=== PATIENT | male | born 1955 | race African-American/Black ===

== ENCOUNTER 2018-04-25 15:53 | Inpatient (IN) | payer OTHER ==
[2018-04-25 18:37] VITALS: BMI 23.1
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
[2018-04-25] MEDS ORDERED: IBUPROFEN 400 MG TABLET (FP) PO PRN (21:01)
[2018-04-25] MEDS ORDERED: METHADONE HCL 10 MG TABLET (FOR DETOX USE ONLY) PO ONE ×4 (21:01→23:45)
[2018-04-25] MEDS ORDERED: LOPERAMIDE HCL 2 MG CAPSULE PO PRN (21:01)
[2018-04-25] MEDS ORDERED: guaiFENesin/D-METHORPHAN HB 10 ML UNIT-DOSE CUPS PO PRN (21:01)
[2018-04-25] MEDS ORDERED: MENTHOL/PHENOL 1 EACH UD MM PRN (21:01)
[2018-04-25] MEDS ORDERED: NICOTINE POLACRILEX 2 MG GUM BC PRN (21:01)
[2018-04-25] MEDS ORDERED: MAGNESIUM CITRATE 300 ML BOTTLE PO PRN (21:01)
[2018-04-25] MEDS ORDERED: ACETAMINOPHEN 325 MG TABLET (FP) PO PRN (21:01)
[2018-04-25] MEDS ORDERED: MAG HYDROX/AL HYDROX/SIMETH 30 ML UNIT-DOSE CUP PO PRN (21:01)
[2018-04-25] MEDS ORDERED: MAGNESIUM HYDROX 2400MG/30ML ORAL SUSPENSION 30 ML CUP PO PRN (21:01)
[2018-04-25] MEDS ORDERED: P-EPHED 60MG/TRIPROLIDI 2.5MG TABLET PO PRN (21:01)
[2018-04-25] MEDS ORDERED: MELATONIN 5 MG TABLETS PO PRN (22:00)
[2018-04-25] MEDS: THIAMINE HCL 100 MG TABLET (FP) PO SCH (23:50)
[2018-04-25] MEDS: diazePAM 5 MG TABLET PO PRN (23:54)
[2018-04-26] MEDS ORDERED: METHADONE HCL 10 MG TABLET (FOR DETOX USE ONLY) PO ONE (10:00)
[2018-04-26] MEDS: PRENATAL VITAMINS W/ FOLIC ACID TABLET (FP) PO SCH (10:34)
[2018-04-26] MEDS: ASPIRIN 81 MG CHEWABLE TABLETS PO SCH (10:34)
[2018-04-26] MEDS: NICOTINE 21 MG/24 HOURS TOPICAL PATCH TD SCH (10:34)
[2018-04-26 11:29] LABS: ALK PHOS 81 U/L (45-117); ANION GAP 7 MMOL/L (8-16); BILIRUBIN,TOTAL 0.2 mg/dL (0.2-1); BLOOD UREA NITROGEN 14 mg/dL (7-18); CALCIUM 8.6 mg/dL (8.5-10.1); CHLORIDE 106 mmol/L (98-107); CO2 25 mmol/L (21-32); CREATININE 1.2 mg/dL (0.55-1.3); GLUCOSE,RANDOM 104 mg/dL (74-106); POTASSIUM 3.9 mmol/L (3.5-5.1); SGOT/AST 10 U/L (15-37); SGPT/ALT 14 U/L (13-61); SODIUM 138 mmol/L (136-145); TOT PROT 6.3 g/dl (6.4-8.2)
[2018-04-26 11:47] LABS: URINE APPEARANCE CLEAR; URINE BILIRUBIN NEGATIVE (<2.0 mg/dL); URINE COLOR LTYELLOW; URINE GLUCOSE (UA) NEGATIVE (NEGATIVE); URINE KETONE NEGATIVE (NEGATIVE); URINE LEUK ESTERASE NEGATIVE (NEGATIVE); URINE NITRITE NEGATIVE (NEGATIVE); URINE PROTEIN NEGATIVE (NEGATIVE)
[2018-04-26 11:53] LABS: HEMATOCRIT 35.9 % (35.4-49); HEMOGLOBIN 11.9 GM/dL (11.7-16.9); MCH 27.8 pg (25.7-33.7); MCHC 33.3 g/dl (32.0-35.9); MEAN CELL VOLUME 83.4 fl (80-96); MEAN PLT VOLUME 9.3 fl (7.5-11.1); PLATELET COUNT 209 K/MM3 (134-434); RDW 14.3 % (11.9-15.9); WHITE BLOOD COUNT 3.6 K/mm3 (4.0-10.0)
--- NOTE | 2018-04-26 14:44 | EKG ---
Test Reason : Blood Pressure : / mmHG Vent. Rate : 081 BPM Atrial Rate : 081 BPM P-R Int : 158 ms QRS Dur : 094 ms QT Int : 334 ms P-R-T Axes : 079 -06 048 degrees QTc Int : 387 ms NORMAL SINUS RHYTHM SEPTAL INFARCT , AGE UNDETERMINED ABNORMAL ECG NO PREVIOUS ECGS AVAILABLE Confirmed by Magdaleno Medeiros MD ([id number]) on 04/26/2018 2:43:58 PM Referred By: Confirmed By:Magdaleno Medeiros MD
--- NOTE | 2018-04-26 16:38 | PN ---
BHS COWS - Scale Resting Pulse: 1= [place] 81-100 Sweatin=Flushed/Facial Moisture Restless Observation: 1= Difficult to Sit Still Pupil Size: 0= Normal to Room Light Bone or Joint Aches: 1= Mild Discomfort Runny Nose/ Eye Tearin= Nasal Congestion GI Upset > 30mins: 2= Nausea/Diarrhea Tremor Observation of Outstretched Hands: 2= Slight Tremor Visible Yawning Observation: 1= 1-2x During Session Anxiety or Irritability: 1=Feels Anxious/Irritable Goose Flesh Skin: 0=Smooth Skin COWS Score: 12 BHS Progress Note (SOAP) Subjective: diarrhea shakes body pain Objective: 04/26/18 16:36 A &O x 3 Vital Signs Temperature 98.2 F 04/26/18 14:29 Pulse Rate 90 04/26/18 14:29 Respiratory Rate 17 04/26/18 14:29 Blood Pressure 110/54 L 04/26/18 14:29 O2 Sat by Pulse Oximetry (%) Laboratory Last Values WBC 3.6 K/mm3 (4.0-10.0) L 04/26/18 07:40 RBC 4.30 M/mm3 (4.00-5.60) 04/26/18 07:40 Hgb 11.9 GM/dL (11.7-16.9) 04/26/18 07:40 Hct 35.9 % (35.4-49) 04/26/18 07:40 MCV 83.4 fl (80-96) 04/26/18 07:40 MCH 27.8 pg (25.7-33.7) 04/26/18 07:40 MCHC 33.3 g/dl (32.0-35.9) 04/26/18 07:40 RDW 14.3 % (11.9-15.9) 04/26/18 07:40 Plt Count 209 K/MM3 (134-434) 04/26/18 07:40 MPV 9.3 fl (7.5-11.1) 04/26/18 07:40 Sodium 138 mmol/L (136-145) 04/26/18 07:40 Potassium 3.9 mmol/L (3.5-5.1) 04/26/18 07:40 Chloride 106 mmol/L (98-107) 04/26/18 07:40 Carbon Dioxide 25 mmol/L (21-32) 04/26/18 07:40 Anion Gap 7 MMOL/L (8-16) L 04/26/18 07:40 BUN 14 mg/dL (7-18) 04/26/18 07:40 Creatinine 1.2 mg/dL (0.55-1.3) 04/26/18 07:40 Creat Clearance w eGFR > 60 (>60) 04/26/18 07:40 Random Glucose 104 mg/dL (74-106) 04/26/18 07:40 Calcium 8.6 mg/dL (8.5-10.1) 04/26/18 07:40 Total Bilirubin 0.2 mg/dL (0.2-1) 04/26/18 07:40 AST 10 U/L (15-37) L 04/26/18 07:40 ALT 14 U/L (13-61) 04/26/18 07:40 Alkaline Phosphatase 81 U/L (45-117) 04/26/18 07:40 Total Protein 6.3 g/dl (6.4-8.2) L 04/26/18 07:40 Albumin 3.0 g/dl (3.4-5.0) L 04/26/18 07:40 Urine Color Ltyellow 04/26/18 07:40 Urine Appearance Clear 04/26/18 07:40 Urine pH 7.0 (5.0-8.0) 04/26/18 07:40 Ur Specific [place] 1.009 (1.010-1.035) L 04/26/18 07:40 Urine Protein Negative (NEGATIVE) 04/26/18 07:40 Urine Glucose (UA) Negative (NEGATIVE) 04/26/18 07:40 Urine Ketones Negative (NEGATIVE) 04/26/18 07:40 Urine Blood Negative (NEGATIVE) 04/26/18 07:40 Urine Nitrite Negative (NEGATIVE) 04/26/18 07:40 Urine Bilirubin Negative (<2.0 mg/dL) 04/26/18 07:40 Urine Urobilinogen 2.0 mg/dL (0.2-1.0) 04/26/18 07:40 Ur Leukocyte Esterase Negative (NEGATIVE) 04/26/18 07:40 RPR Titer Nonreactive (NONREACTIVE) 04/26/18 07:40 Assessment: 04/26/18 16:38 withdrawal sx Plan: continue detox symptomatic management of withdrawals per protocol
[2018-04-26] MEDS: diazePAM 5 MG TABLET PO PRN (22:27)
[2018-04-26] MEDS: THIAMINE HCL 100 MG TABLET (FP) PO SCH (22:27)
[2018-04-26] MEDS: ATORVASTATIN CA 20 MG TABLET (FP) PO SCH (22:27)
[2018-04-27] MEDS ORDERED: METHADONE HCL 5 MG TABLET (FOR DETOX USE ONLY) PO ONE (10:00)
[2018-04-27] MEDS: NICOTINE 21 MG/24 HOURS TOPICAL PATCH TD SCH (10:13)
[2018-04-27] MEDS: ASPIRIN 81 MG CHEWABLE TABLETS PO SCH (10:13)
[2018-04-27] MEDS: PRENATAL VITAMINS W/ FOLIC ACID TABLET (FP) PO SCH (10:13)
--- NOTE | 2018-04-27 16:28 | PN ---
S COWS - Scale Resting Pulse: 0= [place] 80 or Below Sweatin= Chills/Flushing Restless Observation: 3= Extraneous Movement Pupil Size: 0= Normal to Room Light Bone or Joint Aches: 2= Severe Diffuse Aches Runny Nose/ Eye Tearin= Runny Nose/Eyes GI Upset > 30mins: 1= Stomach Cramp Tremor Observation of Outstretched Hands: 2= Slight Tremor Visible Yawning Observation: 0= None Anxiety or Irritability: 2=Irritable/Anxious Goose Flesh Skin: 0=Smooth Skin COWS Score: 13 BHS Progress Note (SOAP) Subjective: Sweating, headache 7/10, nausea, diarrhea, interrupted sleep Objective: 04/27/18 16:26 Last Vital Signs Temp Pulse Resp BP Pulse Ox 97.9 F 70 18 119/71 04/27/18 13:18 04/27/18 13:18 04/27/18 13:18 04/27/18 13:18 Laboratory Tests 04/26/18 04/26/18 04/26/18 07:40 07:40 07:40 WBC 3.6 L RBC 4.30 Hgb 11.9 Hct 35.9 MCV 83.4 MCH 27.8 MCHC 33.3 RDW 14.3 Plt Count 209 MPV 9.3 Sodium 138 Potassium 3.9 Chloride 106 Carbon Dioxide 25 Anion Gap 7 L BUN 14 Creatinine 1.2 Creat Clearance w eGFR > 60 Random Glucose 104 Calcium 8.6 Total Bilirubin 0.2 AST 10 L ALT 14 Alkaline Phosphatase 81 Total Protein 6.3 L Albumin 3.0 L Urine Color Urine Appearance Urine pH Ur Specific [place] Urine Protein Urine Glucose (UA) Urine Ketones Urine Blood Urine Nitrite Urine Bilirubin Urine Urobilinogen Ur Leukocyte Esterase RPR Titer Nonreactive 04/26/18 07:40 WBC RBC Hgb Hct MCV MCH MCHC RDW Plt Count MPV Sodium Potassium Chloride Carbon Dioxide Anion Gap BUN Creatinine Creat Clearance w eGFR Random Glucose Calcium Total Bilirubin AST ALT Alkaline Phosphatase Total Protein Albumin Urine Color Ltyellow Urine Appearance Clear Urine pH 7.0 Ur Specific [place] 1.009 L Urine Protein Negative Urine Glucose (UA) Negative Urine Ketones Negative Urine Blood Negative Urine Nitrite Negative Urine Bilirubin Negative Urine Urobilinogen 2.0 Ur Leukocyte Esterase Negative RPR Titer Labs reviewed Assessment: 04/27/18 16:27 Withdrawal symptoms Plan: Continue detox Encouraged PO water hydration
[2018-04-27] MEDS: ATORVASTATIN CA 20 MG TABLET (FP) PO SCH (22:02)
[2018-04-27] MEDS: THIAMINE HCL 100 MG TABLET (FP) PO SCH (22:02)
[2018-04-27] MEDS: diazePAM 5 MG TABLET PO PRN (22:03)
[2018-04-28] MEDS ORDERED: METHADONE HCL 5 MG TABLET (FOR DETOX USE ONLY) PO ONE (10:00)
[2018-04-28] MEDS: ASPIRIN 81 MG CHEWABLE TABLETS PO SCH (10:38)
[2018-04-28] MEDS: PRENATAL VITAMINS W/ FOLIC ACID TABLET (FP) PO SCH (10:38)
[2018-04-28] MEDS: NICOTINE 21 MG/24 HOURS TOPICAL PATCH TD SCH (10:38)
--- NOTE | 2018-04-28 11:22 | PN ---
BHS COWS - Scale Resting Pulse: 1= [place] 81-100 Sweatin= Chills/Flushing Restless Observation: 0= Sits Still Pupil Size: 0= Normal to Room Light Bone or Joint Aches: 1= Mild Discomfort Runny Nose/ Eye Tearin= Nasal Congestion GI Upset > 30mins: 1= Stomach Cramp Tremor Observation of Outstretched Hands: 1= Tremor [place], Not Seen Yawning Observation: 1= 1-2x During Session Anxiety or Irritability: 2=Irritable/Anxious Goose Flesh Skin: 0=Smooth Skin COWS Score: 9 BHS Progress Note (SOAP) Subjective: feeling better mild body aches less tremor no trouble sleep at night patient preferred begin chemical rehab tomorrow that able to cope with the current withdrawal sx patient is alert no acute distress wants to return to [facility] tomorrow Objective: 04/28/18 11:21 Vital Signs Temperature 98.2 F 04/28/18 09:25 Pulse Rate 96 H 04/28/18 09:25 Respiratory Rate 20 04/28/18 09:25 Blood Pressure 104/74 04/28/18 09:25 O2 Sat by Pulse Oximetry (%) Laboratory Last Values WBC 3.6 K/mm3 (4.0-10.0) L 04/26/18 07:40 RBC 4.30 M/mm3 (4.00-5.60) 04/26/18 07:40 Hgb 11.9 GM/dL (11.7-16.9) 04/26/18 07:40 Hct 35.9 % (35.4-49) 04/26/18 07:40 MCV 83.4 fl (80-96) 04/26/18 07:40 MCH 27.8 pg (25.7-33.7) 04/26/18 07:40 MCHC 33.3 g/dl (32.0-35.9) 04/26/18 07:40 RDW 14.3 % (11.9-15.9) 04/26/18 07:40 Plt Count 209 K/MM3 (134-434) 04/26/18 07:40 MPV 9.3 fl (7.5-11.1) 04/26/18 07:40 Sodium 138 mmol/L (136-145) 04/26/18 07:40 Potassium 3.9 mmol/L (3.5-5.1) 04/26/18 07:40 Chloride 106 mmol/L (98-107) 04/26/18 07:40 Carbon Dioxide 25 mmol/L (21-32) 04/26/18 07:40 Anion Gap 7 MMOL/L (8-16) L 04/26/18 07:40 BUN 14 mg/dL (7-18) 04/26/18 07:40 Creatinine 1.2 mg/dL (0.55-1.3) 04/26/18 07:40 Creat Clearance w eGFR > 60 (>60) 04/26/18 07:40 Random Glucose 104 mg/dL (74-106) 04/26/18 07:40 Calcium 8.6 mg/dL (8.5-10.1) 04/26/18 07:40 Total Bilirubin 0.2 mg/dL (0.2-1) 04/26/18 07:40 AST 10 U/L (15-37) L 04/26/18 07:40 ALT 14 U/L (13-61) 04/26/18 07:40 Alkaline Phosphatase 81 U/L (45-117) 04/26/18 07:40 Total Protein 6.3 g/dl (6.4-8.2) L 04/26/18 07:40 Albumin 3.0 g/dl (3.4-5.0) L 04/26/18 07:40 Urine Color Ltyellow 04/26/18 07:40 Urine Appearance Clear 04/26/18 07:40 Urine pH 7.0 (5.0-8.0) 04/26/18 07:40 Ur Specific [place] 1.009 (1.010-1.035) L 04/26/18 07:40 Urine Protein Negative (NEGATIVE) 04/26/18 07:40 Urine Glucose (UA) Negative (NEGATIVE) 04/26/18 07:40 Urine Ketones Negative (NEGATIVE) 04/26/18 07:40 Urine Blood Negative (NEGATIVE) 04/26/18 07:40 Urine Nitrite Negative (NEGATIVE) 04/26/18 07:40 Urine Bilirubin Negative (<2.0 mg/dL) 04/26/18 07:40 Urine Urobilinogen 2.0 mg/dL (0.2-1.0) 04/26/18 07:40 Ur Leukocyte Esterase Negative (NEGATIVE) 04/26/18 07:40 RPR Titer Nonreactive (NONREACTIVE) 04/26/18 07:40 lab noted Assessment: 04/28/18 11:22 mild withdrawal sx Plan: continue detox
[2018-04-28 22:09] VITALS: TEMP 97.1
[2018-04-28] MEDS: THIAMINE HCL 100 MG TABLET (FP) PO SCH (22:23)
[2018-04-28] MEDS: ATORVASTATIN CA 20 MG TABLET (FP) PO SCH (22:24)
[2018-04-29] MEDS ORDERED: METHADONE HCL 5 MG TABLET (FOR DETOX USE ONLY) PO ONE (06:00)
[2018-04-29 06:20] VITALS: BP 116/65; PULSE 69
[2018-04-29] MEDS ORDERED: METHADONE HCL 10 MG TABLET (FOR DETOX USE ONLY) PO ONE (10:00)
--- NOTE | 2018-04-29 10:32 | DS ---
[facility] Detox Discharge Summary Admission Date: 04/25/18 Discharge Date: 04/29/18 - History Present History: Opioid Dependence Additional Comments: 63 years old male admitted on 04/25/18 for opiate withdrawal stabilization transferred from due to augmentative with roommate patient was doing well on 3N feeling better and preferred return to [facility] for chemical rehab program alert no acute distress denies suicidal ideation aftercare [facility] services Pertinent Past History: patient stated that he is court mandated for opiate detox and require court appearance reported feeling better and able to manage mild opiate withdrawal and has support network in [facility] encourage strip picker narcan kit - Physical Exam Results Vital Signs: Vital Signs Temperature 97.1 F L 04/29/18 06:19 Pulse Rate 69 04/29/18 06:19 Respiratory Rate 18 04/29/18 06:19 Blood Pressure 116/65 04/29/18 06:19 O2 Sat by Pulse Oximetry (%) Pertinent Admission Physical Exam Findings: opiate withdrawal sx Laboratory Last Values WBC 3.6 K/mm3 (4.0-10.0) L 04/26/18 07:40 RBC 4.30 M/mm3 (4.00-5.60) 04/26/18 07:40 Hgb 11.9 GM/dL (11.7-16.9) 04/26/18 07:40 Hct 35.9 % (35.4-49) 04/26/18 07:40 MCV 83.4 fl (80-96) 04/26/18 07:40 MCH 27.8 pg (25.7-33.7) 04/26/18 07:40 MCHC 33.3 g/dl (32.0-35.9) 04/26/18 07:40 RDW 14.3 % (11.9-15.9) 04/26/18 07:40 Plt Count 209 K/MM3 (134-434) 04/26/18 07:40 MPV 9.3 fl (7.5-11.1) 04/26/18 07:40 Sodium 138 mmol/L (136-145) 04/26/18 07:40 Potassium 3.9 mmol/L (3.5-5.1) 04/26/18 07:40 Chloride 106 mmol/L (98-107) 04/26/18 07:40 Carbon Dioxide 25 mmol/L (21-32) 04/26/18 07:40 Anion Gap 7 MMOL/L (8-16) L 04/26/18 07:40 BUN 14 mg/dL (7-18) 04/26/18 07:40 Creatinine 1.2 mg/dL (0.55-1.3) 04/26/18 07:40 Creat Clearance w eGFR > 60 (>60) 04/26/18 07:40 Random Glucose 104 mg/dL (74-106) 04/26/18 07:40 Calcium 8.6 mg/dL (8.5-10.1) 04/26/18 07:40 Total Bilirubin 0.2 mg/dL (0.2-1) 04/26/18 07:40 AST 10 U/L (15-37) L 04/26/18 07:40 ALT 14 U/L (13-61) 04/26/18 07:40 Alkaline Phosphatase 81 U/L (45-117) 04/26/18 07:40 Total Protein 6.3 g/dl (6.4-8.2) L 04/26/18 07:40 Albumin 3.0 g/dl (3.4-5.0) L 04/26/18 07:40 Urine Color Ltyellow 04/26/18 07:40 Urine Appearance Clear 04/26/18 07:40 Urine pH 7.0 (5.0-8.0) 04/26/18 07:40 Ur Specific [place] 1.009 (1.010-1.035) L 04/26/18 07:40 Urine Protein Negative (NEGATIVE) 04/26/18 07:40 Urine Glucose (UA) Negative (NEGATIVE) 04/26/18 07:40 Urine Ketones Negative (NEGATIVE) 04/26/18 07:40 Urine Blood Negative (NEGATIVE) 04/26/18 07:40 Urine Nitrite Negative (NEGATIVE) 04/26/18 07:40 Urine Bilirubin Negative (<2.0 mg/dL) 04/26/18 07:40 Urine Urobilinogen 2.0 mg/dL (0.2-1.0) 04/26/18 07:40 Ur Leukocyte Esterase Negative (NEGATIVE) 04/26/18 07:40 RPR Titer Nonreactive (NONREACTIVE) 04/26/18 07:40 lab noted - Treatment Hospital Course: Detox Protocol Followed, Detoxed Safely, Responded well, Discharged Condition Good, Rehab Referral Accepted Patient has Accepted a Rehab Referral to: [facility] - Medication Discharge Medications: Ambulatory Orders Aspirin [ASA -] 81 mg PO DAILY 04/25/18 Atorvastatin Calcium [Lipitor] 20 mg PO HS #14 tablet 04/28/18 Famotidine [Pepcid] 20 mg PO DAILY 04/28/18 Naloxone HCl [Narcan] 4 mg NS ASDIR PRN 04/29/18 - Diagnosis (1) Opioid dependence with withdrawal Status: Acute (2) HTN (hypertension) Status: Chronic Qualifiers: Hypertension type: essential hypertension Qualified Code(s): I10 - Essential (primary) hypertension (3) Nicotine dependence Status: Acute Qualifiers: Nicotine product type: cigarettes Substance use status: in withdrawal Qualified Code(s): F17.213 - Nicotine dependence, cigarettes, with withdrawal - AMA Did Patient Leave Against Medical Advice: No
[2018-04-30] MEDS ORDERED: METHADONE HCL 5 MG TABLET (FOR DETOX USE ONLY) PO ONE (06:00)
== END 2018-04-29 09:48 | disposition home or self-care (01) | DRG 897 ==
LOC: YASAS 15:53 → Y6N 20:10 → Y3N 04-28 08:32
PROVIDERS: ADMIT Surgery; ATTEND Surgery
PROC: HZ2ZZZZ Detoxification Services for Substance Abuse Treatment (ICD-10-PCS; principal; 2018-04-25)
DX: F11.23 Opioid dependence with withdrawal (principal); F17.213 Nicotine dependence, cigarettes, with withdrawal; F19.24 Other psychoactive substance dependence with psychoactive substance-induced mood disorder; F32.9 Major depressive disorder, single episode, unspecified; I10 Essential (primary) hypertension; E78.5 Hyperlipidemia, unspecified; I49.9 Cardiac arrhythmia, unspecified; R01.1 Cardiac murmur, unspecified; R63.8 Other symptoms and signs concerning food and fluid intake
CPT/HCPCS: 36415; 80053; 81003; 85027; 86593; 93005; 93010

== ENCOUNTER 2018-05-01 08:17 | Inpatient (IN) | payer OTHER ==
[2018-05-01 08:56] VITALS: BMI 24.3
--- NOTE | 2018-05-01 10:50 | HP ---
[facility] Rehab Assess/Revision - Admission History Admitted to Rehab from: [facility] Date of Admission to Rehab: 05/01/18 - Vital signs Vital Signs: Vital Signs Period Temp Pulse Resp BP Sys/Diaz Pulse Ox Last 24 Hr 96.3 F 90 18 136/90 - Findings Detox History & Physical reviewed: Yes Concur with findings: Yes Comments/Additional Findings: for rehab as protocol,. 63 years old male with heroin dependence,nicotine dependence,hypertension,. hypercholesterolemia, admitted complete detox at [facility] from 04/25/18 to 04/29/18,stable to be admitted for rehab Inpatient Rehab Admission - Rehab Decision to Admit Inpatient rehab admission?: Yes - Initial Determination Are CD services needed?: Yes Free of communicable disease: Yes Not in need of hospitalization: Yes - Rehab Admission Criteria Previous failed treatment: Yes Poor recovery environment: Yes Comorbidities: Yes Lacks judgement: No Patient is meeting Inpatient Rehab admission criteria:: Yes
[2018-05-01] MEDS ORDERED: NICOTINE POLACRILEX 2 MG GUM BUC PRN (10:55)
[2018-05-01] MEDS ORDERED: MAGNESIUM HYDROX 2400MG/30ML ORAL SUSPENSION 30 ML CUP PO PRN (10:55)
[2018-05-01] MEDS ORDERED: IBUPROFEN 400 MG TABLET (FP) PO PRN (10:55)
[2018-05-01] MEDS ORDERED: P-EPHED 60MG/TRIPROLIDI 2.5MG TABLET PO PRN (10:55)
[2018-05-01] MEDS ORDERED: guaiFENesin/D-METHORPHAN HB 10 ML UNIT-DOSE CUPS PO PRN (10:55)
[2018-05-01] MEDS ORDERED: MAGNESIUM CITRATE 300 ML BOTTLE PO PRN (10:55)
[2018-05-01] MEDS ORDERED: LOPERAMIDE HCL 2 MG CAPSULE PO PRN (10:55)
[2018-05-01] MEDS ORDERED: MAG HYDROX/AL HYDROX/SIMETH 30 ML UNIT-DOSE CUP PO PRN (10:55)
[2018-05-01] MEDS ORDERED: MENTHOL/PHENOL 1 EACH UD MM PRN (10:55)
[2018-05-01] MEDS ORDERED: ACETAMINOPHEN 325 MG TABLET (FP) PO PRN (10:55)
[2018-05-01] MEDS ORDERED: ASPIRIN 81 MG CHEWABLE TABLETS PO ONE (10:58)
[2018-05-01] MEDS: THIAMINE HCL 100 MG TABLET (FP) PO SCH (22:01)
[2018-05-01] MEDS: RANITIDINE HCL 150 MG TABLET (FP) PO SCH (22:01)
[2018-05-01] MEDS: ATORVASTATIN CA 20 MG TABLET (FP) PO SCH (22:01)
[2018-05-02] MEDS: PRENATAL VITAMINS W/ FOLIC ACID TABLET (FP) PO SCH (10:21)
[2018-05-02] MEDS: ASPIRIN 81 MG CHEWABLE TABLETS PO SCH (10:21)
[2018-05-02] MEDS: RANITIDINE HCL 150 MG TABLET (FP) PO SCH ×2 (10:21→22:12)
[2018-05-02] MEDS: THIAMINE HCL 100 MG TABLET (FP) PO SCH (22:12)
[2018-05-02] MEDS: ATORVASTATIN CA 20 MG TABLET (FP) PO SCH (22:12)
[2018-05-03] MEDS: ASPIRIN 81 MG CHEWABLE TABLETS PO SCH (10:05)
[2018-05-03] MEDS: RANITIDINE HCL 150 MG TABLET (FP) PO SCH ×2 (10:05→21:14)
[2018-05-03] MEDS: PRENATAL VITAMINS W/ FOLIC ACID TABLET (FP) PO SCH (10:05)
[2018-05-03] MEDS: ATORVASTATIN CA 20 MG TABLET (FP) PO SCH (21:14)
[2018-05-03] MEDS: THIAMINE HCL 100 MG TABLET (FP) PO SCH (21:14)
[2018-05-03] MEDS: MELATONIN 5 MG TABLETS PO PRN (22:17)
[2018-05-04] MEDS: RANITIDINE HCL 150 MG TABLET (FP) PO SCH ×2 (10:19→21:53)
[2018-05-04] MEDS: PRENATAL VITAMINS W/ FOLIC ACID TABLET (FP) PO SCH (10:19)
[2018-05-04] MEDS: ASPIRIN 81 MG CHEWABLE TABLETS PO SCH (10:19)
[2018-05-04] MEDS: THIAMINE HCL 100 MG TABLET (FP) PO SCH (21:53)
[2018-05-04] MEDS: ATORVASTATIN CA 20 MG TABLET (FP) PO SCH (21:53)
[2018-05-04] MEDS: MELATONIN 5 MG TABLETS PO PRN (21:53)
[2018-05-05] MEDS: ASPIRIN 81 MG CHEWABLE TABLETS PO SCH (09:43)
[2018-05-05] MEDS: RANITIDINE HCL 150 MG TABLET (FP) PO SCH ×2 (09:43→21:08)
[2018-05-05] MEDS: PRENATAL VITAMINS W/ FOLIC ACID TABLET (FP) PO SCH (09:43)
[2018-05-05] MEDS: THIAMINE HCL 100 MG TABLET (FP) PO SCH (21:08)
[2018-05-05] MEDS: MELATONIN 5 MG TABLETS PO PRN (21:08)
[2018-05-05] MEDS: ATORVASTATIN CA 20 MG TABLET (FP) PO SCH (21:08)
[2018-05-06] MEDS: ASPIRIN 81 MG CHEWABLE TABLETS PO SCH (10:19)
[2018-05-06] MEDS: RANITIDINE HCL 150 MG TABLET (FP) PO SCH ×2 (10:19→22:02)
[2018-05-06] MEDS: PRENATAL VITAMINS W/ FOLIC ACID TABLET (FP) PO SCH (10:19)
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
[2018-05-06] MEDS: THIAMINE HCL 100 MG TABLET (FP) PO SCH (22:02)
[2018-05-06] MEDS: ATORVASTATIN CA 20 MG TABLET (FP) PO SCH (22:02)
[2018-05-06] MEDS: hydrOXYzine PAMOATE 25 MG CAPSULE (FP) PO PRN (22:04)
[2018-05-06] MEDS: MELATONIN 5 MG TABLETS PO PRN (22:05)
[2018-05-07] MEDS: PRENATAL VITAMINS W/ FOLIC ACID TABLET (FP) PO SCH (10:09)
[2018-05-07] MEDS: hydrOXYzine PAMOATE 25 MG CAPSULE (FP) PO PRN (10:09)
[2018-05-07] MEDS: RANITIDINE HCL 150 MG TABLET (FP) PO SCH ×2 (10:09→21:17)
[2018-05-07] MEDS: ASPIRIN 81 MG CHEWABLE TABLETS PO SCH (10:09)
[2018-05-07] MEDS: ATORVASTATIN CA 20 MG TABLET (FP) PO SCH (21:17)
[2018-05-07] MEDS: THIAMINE HCL 100 MG TABLET (FP) PO SCH (21:17)
[2018-05-07] MEDS: MELATONIN 5 MG TABLETS PO PRN (21:17)
[2018-05-08] MEDS ORDERED: PT OWN MED DRAWER 7, Y5N ONE (09:54)
[2018-05-08] MEDS: PRENATAL VITAMINS W/ FOLIC ACID TABLET (FP) PO SCH (09:58)
[2018-05-08] MEDS: ASPIRIN 81 MG CHEWABLE TABLETS PO SCH (09:58)
[2018-05-08] MEDS: RANITIDINE HCL 150 MG TABLET (FP) PO SCH ×2 (09:58→21:50)
[2018-05-08] MEDS: ATORVASTATIN CA 20 MG TABLET (FP) PO SCH (21:50)
[2018-05-08] MEDS: THIAMINE HCL 100 MG TABLET (FP) PO SCH (21:50)
[2018-05-08] MEDS: MELATONIN 5 MG TABLETS PO PRN (21:51)
[2018-05-09] MEDS: RANITIDINE HCL 150 MG TABLET (FP) PO SCH ×2 (09:44→22:00)
[2018-05-09] MEDS: PRENATAL VITAMINS W/ FOLIC ACID TABLET (FP) PO SCH (09:44)
[2018-05-09] MEDS: ASPIRIN 81 MG CHEWABLE TABLETS PO SCH (09:45)
[2018-05-09] MEDS: ATORVASTATIN CA 20 MG TABLET (FP) PO SCH (22:00)
[2018-05-09] MEDS: MELATONIN 5 MG TABLETS PO PRN (22:00)
[2018-05-09] MEDS: THIAMINE HCL 100 MG TABLET (FP) PO SCH (22:00)
[2018-05-10] MEDS: RANITIDINE HCL 150 MG TABLET (FP) PO SCH ×2 (09:51→21:20)
[2018-05-10] MEDS: ASPIRIN 81 MG CHEWABLE TABLETS PO SCH (09:51)
[2018-05-10] MEDS: PRENATAL VITAMINS W/ FOLIC ACID TABLET (FP) PO SCH (09:51)
[2018-05-10] MEDS: THIAMINE HCL 100 MG TABLET (FP) PO SCH (21:19)
[2018-05-10] MEDS: MELATONIN 5 MG TABLETS PO PRN (21:20)
[2018-05-10] MEDS: ATORVASTATIN CA 20 MG TABLET (FP) PO SCH (21:20)
[2018-05-11] MEDS: PRENATAL VITAMINS W/ FOLIC ACID TABLET (FP) PO SCH (09:34)
[2018-05-11] MEDS: RANITIDINE HCL 150 MG TABLET (FP) PO SCH ×2 (09:34→21:11)
[2018-05-11] MEDS: ASPIRIN 81 MG CHEWABLE TABLETS PO SCH (09:34)
[2018-05-11] MEDS: ATORVASTATIN CA 20 MG TABLET (FP) PO SCH (21:10)
[2018-05-11] MEDS: THIAMINE HCL 100 MG TABLET (FP) PO SCH (21:10)
[2018-05-11] MEDS: MELATONIN 5 MG TABLETS PO PRN (21:11)
[2018-05-12 06:55] VITALS: BP 122/70; PULSE 64; TEMP 97.6
[2018-05-12] MEDS: RANITIDINE HCL 150 MG TABLET (FP) PO SCH (09:18)
[2018-05-12] MEDS: PRENATAL VITAMINS W/ FOLIC ACID TABLET (FP) PO SCH (09:18)
[2018-05-12] MEDS: ASPIRIN 81 MG CHEWABLE TABLETS PO SCH (09:18)
[2018-05-12] MEDS ORDERED: PT OWN MED DRAWER 7, Y5N ONE (09:33)
--- NOTE | 2018-05-12 12:11 | PN ---
[facility] Progress Note Note: REHAB DISCHARGE NOTE PATIENT SCHEDULED FOR DISCHARGE FROM REHAB TODAY. PATIENT IS MEDICALLY STABLE AND DENIES SI/HI. PATIENT STATES HE ACCOMPLISHED ALL REHAB GOALS AND DENIES SI/ HI. TO FOLLOW UP INDEPENDENTLY OUTPATIENT TREATMENT IN [place], [place]. PATIENT ENCOURAGED TO ATTEND GROUP MEETINGS TO PREVENT RELAPSE AND TO FOLLOW UP WITH PCP WITHIN ONE WEEK OF DISCHARGE. PATIENT SENT ALL (MEDICAL) MEDICATIONS TO PREFERRED PHARMACY. Vital Signs Temperature 97.6 F 05/12/18 06:00 Pulse Rate 64 05/12/18 06:00 Respiratory Rate 18 05/12/18 06:00 Blood Pressure 122/70 05/12/18 06:00 O2 Sat by Pulse Oximetry (%)
== END 2018-05-12 10:15 | disposition home or self-care (01) | DRG 895 ==
LOC: YASAS 08:17 → Y3W 10:59
PROVIDERS: ADMIT Neuromusculoskeletal Medicine & OMM; ATTEND Neuromusculoskeletal Medicine & OMM
PROC: HZ42ZZZ Group Counseling for Substance Abuse Treatment, Cognitive-Behavioral (ICD-10-PCS; principal; 2018-05-01)
DX: F11.20 Opioid dependence, uncomplicated (principal); F17.210 Nicotine dependence, cigarettes, uncomplicated; F19.24 Other psychoactive substance dependence with psychoactive substance-induced mood disorder; F32.9 Major depressive disorder, single episode, unspecified; I10 Essential (primary) hypertension; E78.5 Hyperlipidemia, unspecified; R01.1 Cardiac murmur, unspecified; R63.8 Other symptoms and signs concerning food and fluid intake

== ENCOUNTER 2018-05-06 14:24 | Emergency (ER) | payer OTHER ==
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
[2018-05-06 14:41] VITALS: BP 102/66; PULSE 85; TEMP 98.1; BMI 24.0
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
[2018-05-06] MEDS ORDERED: KETOROLAC TROMETHAMINE 60 MG/2 ML VIAL ONE (15:39)
[2018-05-06] MEDS ORDERED: KETOROLAC TROMETHAMINE 60 MG/2 ML VIAL IM ONE (15:40)
[2018-05-06] MEDS ORDERED: LIDOCAINE 5% TOPICAL PATCH TP ONE (15:41)
[2018-05-06] MEDS ORDERED: LIDOCAINE 5% TOPICAL PATCH ONE (15:44)
[2018-05-06] MEDS ORDERED: LIDOCAINE PATCH REMOVAL MC SCH (22:00)
== END 2018-05-06 16:16 | disposition home or self-care (01) ==
LOC: JERFT 14:24
PROC: 3E0233Z Introduction of Anti-inflammatory into Muscle, Percutaneous Approach (ICD-10-PCS; principal; 2018-05-06)
DX: S39.012A Strain of muscle, fascia and tendon of lower back, initial encounter (principal); Y00.XXXA Assault by blunt object, initial encounter; Y93.89 Activity, other specified; Y92.238 Other place in hospital as the place of occurrence of the external cause; Y99.8 Other external cause status; I10 Essential (primary) hypertension; E78.5 Hyperlipidemia, unspecified; F11.20 Opioid dependence, uncomplicated
CPT/HCPCS: 96372; 99281-25

== ENCOUNTER 2021-10-04 12:50 | Inpatient (IN) | payer OTHER ==
[2021-10-04 14:24] VITALS: BMI 23.6
[2021-10-04] MEDS ORDERED: MAGNESIUM HYDROX 2400MG/30ML ORAL SUSPENSION 30 ML CUP PO PRN (19:57)
[2021-10-04] MEDS ORDERED: MAG HYDROX/AL HYDROX/SIMETH 30 ML UNIT-DOSE CUP PO PRN (19:57)
[2021-10-04] MEDS ORDERED: LOPERAMIDE HCL 2 MG CAPSULE PO PRN (19:57)
[2021-10-04] MEDS ORDERED: ONDANSETRON *ODT* 4 MG TABLET SL PRN (19:57)
[2021-10-04] MEDS ORDERED: ACETAMINOPHEN 325 MG TABLET (FP) PO PRN ×2 (19:57)
[2021-10-04] MEDS ORDERED: MAGNESIUM CITRATE 300 ML BOTTLE PO PRN (19:57)
[2021-10-04] MEDS ORDERED: cloNIDine HCL 0.1 MG TABLET PO PRN (19:57)
[2021-10-04] MEDS ORDERED: BENZOCAINE/MENTHOL (CHLORASEPTIC ) LOZENGE MM PRN (19:57)
[2021-10-04] MEDS ORDERED: BISMUTH SUBSALICYLATE 524 MG/30 ML PO PRN (19:57)
[2021-10-04] MEDS ORDERED: methaDONE HCL 10 MG TABLET (FOR DETOX USE ONLY) PO ONE (19:57)
[2021-10-04] MEDS ORDERED: DICYCLOMINE HCL 10 MG CAPSULE PO PRN (19:57)
[2021-10-04] MEDS ORDERED: METHOCARBAMOL 500 MG TABLET PO PRN (19:57)
[2021-10-04] MEDS ORDERED: IBUPROFEN 600 MG TABLET (FP) PO PRN (19:57)
[2021-10-04] MEDS ORDERED: IBUPROFEN 400 MG TABLET (FP) PO PRN (19:57)
[2021-10-04] MEDS: MELATONIN 5 MG TABLETS PO SCH (23:53)
[2021-10-04] MEDS: THIAMINE HCL 100 MG TABLET (FP) PO SCH (23:53)
[2021-10-04] MEDS: hydrOXYzine PAMOATE 25 MG CAPSULE (FP) PO SCH (23:53)
[2021-10-05] MEDS: hydrOXYzine PAMOATE 25 MG CAPSULE (FP) PO SCH ×5 (07:01→23:30)
[2021-10-05] MEDS ORDERED: methaDONE HCL 10 MG TABLET (FOR DETOX USE ONLY) ONE (08:46)
[2021-10-05] MEDS ORDERED: NICOTINE 21 MG/24 HOURS TOPICAL PATCH TD SCH (10:00)
[2021-10-05] MEDS ORDERED: PRENATAL VITAMINS W/ FOLIC ACID TABLET (FP) PO SCH (10:00)
[2021-10-05 13:45] LABS: HEMATOCRIT 34.1 % (35.4-49); HEMOGLOBIN 10.8 GM/dL (11.7-16.9); MCH 24.7 pg (25.7-33.7); MCHC 31.7 g/dl (32.0-35.9); MEAN CELL VOLUME 77.7 fl (80-96); MEAN PLT VOLUME 8.2 fl (7.5-11.1); PLATELET COUNT 311 10^3/uL (134-434); RBC 4.38 M/mm3 (4.00-5.60); RDW 17.7 % (11.9-15.9); WHITE BLOOD COUNT 3.9 K/mm3 (4.0-10.0)
[2021-10-05 13:56] LABS: CALCIUM 8.9 mg/dL (8.5-10.1)
[2021-10-05 13:57] LABS: ALBUMIN 2.7 g/dl (3.4-5.0); BLOOD UREA NITROGEN 9.4 mg/dL (7-18)
[2021-10-05 14:00] LABS: CREATININE 1.1 mg/dL (0.55-1.3)
[2021-10-05 14:02] LABS: BILIRUBIN,TOTAL 0.4 mg/dL (0.2-1)
[2021-10-05] MEDS ORDERED: diazePAM 5 MG TABLET PO PRN (15:22)
[2021-10-05 16:32] LABS: HIV INTERPRETATION NEGATIVE (NEGATIVE)
[2021-10-05] MEDS: MELATONIN 5 MG TABLETS PO SCH (23:30)
[2021-10-05] MEDS: THIAMINE HCL 100 MG TABLET (FP) PO SCH (23:30)
[2021-10-06] MEDS: hydrOXYzine PAMOATE 25 MG CAPSULE (FP) PO SCH (06:59)
[2021-10-06 09:46] VITALS: BP 155/82; PULSE 87; TEMP 97.5
[2021-10-06] MEDS ORDERED: methaDONE HCL 10 MG TABLET (FOR DETOX USE ONLY) PO ONE (10:00)
[2021-10-08] MEDS ORDERED: methaDONE HCL 10 MG TABLET (FOR DETOX USE ONLY) PO ONE (10:00)
== END 2021-10-06 09:50 | disposition left against medical advice (07) | DRG 894 ==
LOC: YASAS 12:50 → Y3N 23:14
PROVIDERS: ADMIT Allergy & Immunology; ATTEND Surgery
PROC: HZ2ZZZZ Detoxification Services for Substance Abuse Treatment (ICD-10-PCS; principal; 2021-10-04)
DX: F11.23 Opioid dependence with withdrawal (principal); F19.282 Other psychoactive substance dependence with psychoactive substance-induced sleep disorder; L03.115 Cellulitis of right lower limb; F17.210 Nicotine dependence, cigarettes, uncomplicated; F19.24 Other psychoactive substance dependence with psychoactive substance-induced mood disorder; F41.9 Anxiety disorder, unspecified; E78.5 Hyperlipidemia, unspecified; I10 Essential (primary) hypertension; M54.50 Low back pain, unspecified; G89.29 Other chronic pain
CPT/HCPCS: 36415; 80053; 85025; 85027; 86780; 87040; 87389; 93970-TC; C9803-CS; J0735; J0875; U0003; U0005

== ENCOUNTER 2023-02-23 15:33 | Inpatient (IN) | payer OTHER ==
[2023-02-23 17:07] VITALS: BMI 22.9
[2023-02-23] MEDS ORDERED: methaDONE HCL 10 MG TABLET (FOR DETOX USE ONLY) PO ONE ×2 (17:37→19:00)
[2023-02-23] MEDS ORDERED: BENZOCAINE/MENTHOL (CHLORASEPTIC ) LOZENGE MM PRN (17:37)
[2023-02-23] MEDS ORDERED: POLYETHYLENE GLYCOL (HEALTHYLAX) 3350 17 GM PACKET PO PRN (17:37)
[2023-02-23] MEDS ORDERED: DICYCLOMINE HCL 10 MG CAPSULE PO PRN (17:37)
[2023-02-23] MEDS ORDERED: MAG HYDROX/AL HYDROX/SIMETH 30 ML UNIT-DOSE CUP PO PRN (17:37)
[2023-02-23] MEDS ORDERED: P-EPHED 60MG/TRIPROLIDI 2.5MG TABLET PO PRN (17:37)
[2023-02-23] MEDS ORDERED: ACETAMINOPHEN 325 MG TABLET (FP) PO PRN (17:37)
[2023-02-23] MEDS ORDERED: guaiFENesin 600 MG TABLET.ER (FP) PO PRN (17:37)
[2023-02-23] MEDS ORDERED: NICOTINE POLACRILEX 2 MG GUM BUC PRN (17:37)
[2023-02-23] MEDS ORDERED: NALOXONE HCL 0.4 MG/ML VIAL IM PRN (17:37)
[2023-02-23] MEDS ORDERED: MAGNESIUM HYDROX 2400MG/30ML ORAL SUSPENSION 30 ML CUP PO PRN (17:37)
[2023-02-23] MEDS ORDERED: NALOXONE HCL (KLOXXADO) 8 MG SPRAY NS PRN (17:37)
[2023-02-23] MEDS ORDERED: BENZONATATE 200 MG CAPSULE PO PRN (17:37)
[2023-02-23] MEDS ORDERED: IBUPROFEN 600 MG TABLET (FP) PO PRN (17:37)
[2023-02-23] MEDS ORDERED: BACLOFEN 10 MG TABLET (FP) PO PRN (17:37)
[2023-02-23] MEDS ORDERED: cloNIDine HCL 0.1 MG TABLET PO PRN (17:37)
[2023-02-23] MEDS ORDERED: IBUPROFEN 400 MG TABLET (FP) PO PRN (17:37)
[2023-02-23] MEDS ORDERED: BISMUTH SUBSALICYLATE 524 MG/30 ML PO PRN (17:37)
[2023-02-23] MEDS ORDERED: TRIMETHOBENZAMIDE HCL 200MG/2ML INJ IM ONE ×2 (18:05→18:10)
[2023-02-23] MEDS: ASPIRIN 81 MG CHEWABLE TABLETS PO SCH (20:26)
[2023-02-23] MEDS ORDERED: ONDANSETRON *ODT* 4 MG TABLET SL ONE (22:40)
[2023-02-23] MEDS: ATORVASTATIN CA 20 MG TABLET (FP) PO SCH (22:45)
[2023-02-23] MEDS: MELATONIN 5 MG TABLETS PO SCH (22:45)
[2023-02-23] MEDS: THIAMINE HCL 100 MG TABLET (FP) PO SCH (22:45)
[2023-02-24] MEDS: PRENATAL VITAMINS W/ FOLIC ACID TABLET (FP) PO SCH (09:58)
[2023-02-24] MEDS: ASPIRIN 81 MG CHEWABLE TABLETS PO SCH (09:58)
[2023-02-24] MEDS: FAMOTIDINE 20 MG TABLET PO SCH (09:59)
[2023-02-24] MEDS: THIAMINE HCL 100 MG TABLET (FP) PO SCH (22:35)
[2023-02-24] MEDS: ATORVASTATIN CA 20 MG TABLET (FP) PO SCH (22:35)
[2023-02-24] MEDS: MELATONIN 5 MG TABLETS PO SCH (22:35)
[2023-02-25] MEDS ORDERED: ONDANSETRON *ODT* 4 MG TABLET SL PRN (09:51)
[2023-02-25] MEDS ORDERED: TRIMETHOBENZAMIDE HCL 200MG/2ML INJ IM PRN (09:55)
[2023-02-25] MEDS ORDERED: methaDONE HCL 10 MG TABLET (FOR DETOX USE ONLY) PO ONE (10:00)
[2023-02-25] MEDS: FAMOTIDINE 20 MG TABLET PO SCH (10:06)
[2023-02-25] MEDS: ASPIRIN 81 MG CHEWABLE TABLETS PO SCH (10:06)
[2023-02-25] MEDS: PRENATAL VITAMINS W/ FOLIC ACID TABLET (FP) PO SCH (10:08)
[2023-02-25] MEDS: ATORVASTATIN CA 20 MG TABLET (FP) PO SCH (22:02)
[2023-02-25] MEDS: THIAMINE HCL 100 MG TABLET (FP) PO SCH (22:02)
[2023-02-25] MEDS: MELATONIN 5 MG TABLETS PO SCH (22:02)
[2023-02-26] MEDS: FAMOTIDINE 20 MG TABLET PO SCH (10:04)
[2023-02-26] MEDS: PRENATAL VITAMINS W/ FOLIC ACID TABLET (FP) PO SCH (10:04)
[2023-02-26] MEDS: ASPIRIN 81 MG CHEWABLE TABLETS PO SCH (10:04)
[2023-02-26] MEDS: THIAMINE HCL 100 MG TABLET (FP) PO SCH (22:24)
[2023-02-26] MEDS: MELATONIN 5 MG TABLETS PO SCH (22:24)
[2023-02-26] MEDS: ATORVASTATIN CA 20 MG TABLET (FP) PO SCH (22:24)
[2023-02-27] MEDS: FAMOTIDINE 20 MG TABLET PO SCH (09:53)
[2023-02-27] MEDS: PRENATAL VITAMINS W/ FOLIC ACID TABLET (FP) PO SCH (09:54)
[2023-02-27] MEDS: ASPIRIN 81 MG CHEWABLE TABLETS PO SCH (09:54)
[2023-02-27] MEDS ORDERED: methaDONE HCL 10 MG TABLET (FOR DETOX USE ONLY) PO ONE (10:00)
[2023-02-27 11:46] LABS: CALCIUM 8.6 mg/dL (8.5-10.1)
[2023-02-27 11:47] LABS: BLOOD UREA NITROGEN 16.4 mg/dL (7-18)
[2023-02-27 12:01] LABS: HEMATOCRIT 38.6 % (35.4-49); HEMOGLOBIN 12.5 GM/dL (11.7-16.9); MCH 25.8 pg (25.7-33.7); MCHC 32.3 g/dl (32.0-35.9); MEAN CELL VOLUME 79.8 fl (80-96); MEAN PLT VOLUME 8.6 fl (7.5-11.1); PLATELET COUNT 194 10^3/uL (134-434); RBC 4.83 M/mm3 (4.00-5.60); RDW 15.8 % (11.9-15.9); WHITE BLOOD COUNT 5.2 K/mm3 (4.0-10.0)
[2023-02-27 13:15] VITALS: BP 104/60; PULSE 53; RESP 18; TEMP 97.6
[2023-02-27 13:16] LABS: ANISOCYTOSIS 0; HELMET CELLS 0; HOWELL-JOLLY BODIES 0; MACROCYTOSIS 0; OVALOCYTE 0; ROULEAU 0; SICKELED CELLS 0; TARGET CELLS 0; TEAR DROP CELLS 0; TOXIC GRANULATION 0
== END 2023-02-27 12:54 | disposition home or self-care (01) | DRG 897 ==
LOC: YASAS 15:33 → Y3N 17:55
PROVIDERS: ADMIT Allergy & Immunology; ATTEND Surgery
PROC: HZ2ZZZZ Detoxification Services for Substance Abuse Treatment (ICD-10-PCS; principal; 2023-02-23)
DX: F11.23 Opioid dependence with withdrawal (principal); F17.210 Nicotine dependence, cigarettes, uncomplicated; E78.5 Hyperlipidemia, unspecified; I10 Essential (primary) hypertension; K21.9 Gastro-esophageal reflux disease without esophagitis
CPT/HCPCS: 36415; 80048; 85025; 87635; 87811; 93005; 93010; Q0162